=== PATIENT | female | born 1985 | race Caucasian/White ===

== ENCOUNTER 2016-08-01 13:35 | Emergency (ER) | payer OTHER ==
[~2016-08-01 13:35] MED LIST: CELEXA PO; DESYREL50 MG PO; NO MEDICATIONS; ORTHO-CYCLEN1 TAB PO; VOLTAREN75 MG PO
[2016-08-01] MEDS ORDERED: PENICILLIN (13:41)
== END 2016-08-01 15:12 | disposition home or self-care (01) ==
LOC: SED 13:35
DX: K08.89 Other specified disorders of teeth and supporting structures (principal); Z86.79 Personal history of other diseases of the circulatory system
CPT/HCPCS: 96372; 99283; J1885